=== PATIENT | female | born 1985 | race African-American/Black ===

== ENCOUNTER 2019-04-02 22:34 | Emergency (ER) | payer MEDICAID ==
[~2019-04-02] VITALS: Ht 167.6 cm; Wt 82.0 kg
[2019-04-02] MEDS ORDERED: LIDOCAINE HCL/EPINEPHRINE 1%-EPI 1:100,000 30 ML VIAL INFIL ONE (23:15)
[2019-04-02] MEDS ORDERED: MORPHINE SULFATE 4 MG/ML CPJ (NOT FOR IM USE) IV ONE (23:15)
[2019-04-02 23:36] LABS: HEMATOCRIT 39.8 % (36.0-48.0); HEMOGLOBIN 12.8 g/dL (12.0-16.0); MEAN CORPUSCULAR HEMOGLOBIN 28.3 pg (28.0-32.0); MEAN CORPUSCULAR VOLUME 88.2 fL (81.0-99.0); PLATELET 192 x1000/uL (130-400); RED BLOOD CELL COUNT 4.51 mill/uL (4.2-5.4); RED CELL DISTRIBUTION WIDTH 14.8 % (11.6-14.6)
[2019-04-02 23:42] LABS: CHLORIDE 111 mEq/L (98-107)
[2019-04-02 23:48] LABS: ETHANOL BLOOD 50 mg/dL
[2019-04-03 01:01] VITALS: BP 131/82
== END 2019-04-03 02:19 | disposition home or self-care (01) ==
LOC: ER 22:34
DX: S01.512A Laceration without foreign body of oral cavity, initial encounter (principal); S02.81XA Fracture of other specified skull and facial bones, right side, initial encounter for closed fracture; S06.0X1A Concussion with loss of consciousness of 30 minutes or less, initial encounter; M25.511 Pain in right shoulder; Y07.499 Other family member, perpetrator of maltreatment and neglect; Y04.2XXA Assault by strike against or bumped into by another person, initial encounter; Y93.89 Activity, other specified; Y92.89 Other specified places as the place of occurrence of the external cause
CPT/HCPCS: 36415; 70450; 70486; 71045; 72125; 73030; 80053; 80320; 81025; 85027; 96374; 99284; J2270; Z7610; G0480

== ENCOUNTER 2019-04-10 16:45 | Emergency (ER) | payer MEDICAID ==
[~2019-04-10] VITALS: Ht 162.6 cm; Wt 81.0 kg
[2019-04-10 16:48] VITALS: BP 127/64
[2019-04-10] MEDS ORDERED: TETANUS, DIPHTHERIA, PERTUSSIS VAC/PF 0.5ML (>7YR OLD) IM ONE (17:30)
[2019-04-10] MEDS ORDERED: CLINDAMYCIN HCL 150MG CAPSULE PO SCH (17:45)
== END 2019-04-10 18:00 | disposition home or self-care (01) ==
LOC: ER 16:45
DX: L03.211 Cellulitis of face (principal); Z59.0 Homelessness; Z72.0 Tobacco use; Z88.2 Allergy status to sulfonamides; Z88.8 Allergy status to other drugs, medicaments and biological substances; Z23 Encounter for immunization
CPT/HCPCS: 90471; 90715; 99283